=== PATIENT | male | born 2000 | race Caucasian/White ===

== ENCOUNTER 2022-06-29 14:50 | Emergency (ER) | payer MEDICAID, SELFPAY ==
[2022-06-29 15:59] VITALS: BP 126/58; PULSE 74; RESP 18; TEMP 36.8; O2SAT 100; BMI 23.0
[2022-06-29] MEDS: Ondansetron ODT 4 MG TAB.RAPDIS TRANSLINGU (16:04)
[2022-06-29 19:21] LABS: MANUAL DIFF FLAG NO
[2022-06-29 19:28] VITALS: BP 139/60; PULSE 72; RESP 16; TEMP 36.7; O2SAT 98
[2022-06-29 19:28] LABS: INTERNATIONAL NORM RATIO 1.1 (0.9-1.1); Prothrombin Time 12.5 SEC (10.0-13.1)
[2022-06-29 19:31] LABS: Basophils Percent Auto 0.3 % (0-2); Eosinophils Percent Auto 0.3 % (0-4); Hematocrit 40.6 % (42.0-52.0); Hemoglobin 14.4 g/dl (14.0-18.0); Imm Gran Abs Auto 0.02 X10*3/uL (0.00-0.03); Imm Gran Pct Auto 0.3 % (0.0-0.4); Lymphocytes Absolute Auto 1.6 X10*3/uL (1.2-4.9); Mean Corpuscular HGB Conc 35.5 g/dl (31.0-36.0); Mean Corpuscular Hemoglobin 31.2 pg (27.0-33.0); Mean Corpuscular Volume 87.9 fL (80.0-98.0); Mean Platelet Volume 9.7 fL (9.4-12.4); Monocytes Absolute Auto 0.9 X10*3/uL (0.1-1.2); Monocytes Percent Auto 11.3 % (2-11); Neutrophils Absolute Auto 5.1 x10*3/uL (2.0-8.3); Neutrophils Percent Auto 66.8 % (45-73); Partial Thromboplastin Time 28.8 SEC (26.0-36.4); Platelet Count 240 X10*3/uL (160-400); Red Blood Count 4.62 X10*6/uL (4.60-5.80); Red Cell Distribution Width 12.2 % (11.0-16.0); White Blood Count 7.6 X10*3/uL (4.8-10.8)
[2022-06-29 19:54] LABS: Alanine Aminotransferase 25 U/L (0-40); Albumin Level 4.7 g/dL (3.5-5.0); Alkaline Phosphatase 83 U/L (39-117); Anion Gap 15 (12-20); Aspartate Amino Transferase 25 U/L (5-37); Bilirubin Total 1.2 mg/dL (0.0-1.0); Blood Urea Nitrogen 18 mg/dL (9-16); Calcium 9.1 mg/dL (8.4-10.2); Carbon Dioxide 25 mmol/L (22-29); Chloride 105 mmol/L (96-108); Creatinine Clr Calc Pharmacy 121.4; Estimated Glomerular Filt Rate > 60; Glucose Random 85 mg/dL (60-115); Sodium 141 mmol/L (135-145); Total Protein 6.7 g/dL (6.5-8.0)
--- NOTE | 2022-06-29 20:08 | ED_ITS ---
History of Present Illness General Chief Complaint: Epistaxis Stated Complaint: bloody nose, dizzy Time Seen by Provider: 06/29/22 16:23 Source: patient and family (Mother) Mode of arrival: ambulatory Limitations: no limitations History of Present Illness HPI Narrative: 22-year-old male who presents emergency department for evaluation of nose bleed patient states that around 14:00 he began having a nose bleed from his left nares. He states he was unable to get the bleeding to stop despite putting pressure on the bridge of his nose. Patient states he has had 3 nose bleeds over the last month. He states that he often gets nosebleeds in the winter months as well. He believes that the nose bleeds usually occur on his left side of his nose. He denies picking his nose or putting anything in his nose. He s tates that approximately 3 or 4 weeks ago he did notice some bruising in his lower extremities which have resolved. He has not had any significant bleeding when he brushes his teeth or any bleeding rectally. He denied any systemic symptoms such as fever, chills, rhinorrhea, sore throat, cough, night sweats, weight loss or weight gain. Location: Yes left naris Onset/current episode: Yes hour(s) (14:00) Duration: Yes constant (Resolved prior to coming to emergency department) Pertinent past history: Yes history of previous nose bleed (3 times in last 3 weeks, often during the winter months) Context: Yes history of previous nose bleed Treatment prior to arrival: Yes other (Pinching the bridge of his nose.) Related Data Allergies Allergy/AdvReac Type Severity Reaction Status Date / Time No Known Allergies Allergy Verified 06/29/22 15:59 Review of Systems Review of Systems: Yes all other systems are reviewed and are negative [facility] Past Medical History [facility] Narrative: Past medical history: None. Past surgical history left femur fracture 2019 ORIF. Social history: He denies tobacco, alcohol and drug use. Social History Social History Advance Directives: No Advance Directives Information Provided: No Physical Exam Vital Signs: Vital Signs: Last Vital Signs Temp 98.1 F 06/29/22 19:28 Pulse 72 06/29/22 19:28 Resp 16 06/29/22 19:28 BP 139/60 06/29/22 19:28 Pulse Ox 98 06/29/22 19:28 O2 Del Method 06/29/22 19:28 BMI result Body Mass Index 23.0 Const: General: cooperative and no acute distress Orientation/consciousness: oriented to person and oriented to place Limitations: no limitations HEENT: Other: Patient has dry blood in his left nares, there is a very tiny crack noted over the anterior nasal septum in the area of Kiesselbach's plexus, no blood clot or active bleeding noted Head: Yes normal to inspection, Yes normocephalic and Yes atraumatic Ears: external ears normal Face and sinus: Yes normal facial exam Mouth: Normal oral and palatal mucosa present Throat: Yes posterior o ropharynx normal Eyes: General: appearance normal, both eyes and all related structures Pupils: Equal, round and reactive pupils present Neck: Neck: Yes normal visual inspection, Yes no lymphadenopathy, Yes trachea midline and Yes supple Chest: Chest palpation & inspection: normal inspection of the chest and normal palpation of entire chest wall Resp: Effort & Inspection: normal respiratory effort and able to speak in complete sentences Auscultation: clear to auscultation bilaterally Cardio: Rate: regular rate Rhythm: regular rhythm Heart sounds: S1 normal heart sound present, S2 normal heart sound present and no murmurs GI: Inspection: Yes normal to inspection Palpation (GI): Soft to palpation, nontender and no guarding Auscultation: normal bowel sounds Skin: Other: Patient has no bruising of his skin, no lesions Neuro: General: oriented to person and oriented to place Cranial nerves: Yes CN's II-XII intact bilaterally and Yes Equal, round and reactive pupils present Cognition (Neuro): normal cognition Extrem: General: Yes normal to inspection Psych: Appearance: grossly normal Speech and movement: Normal speech and movement present Affect: normal affect Course Course Course Narrative: 22-year-old male who presents emergency department for evaluation of left nares epistaxis. Patient states he has had 3 nosebleeds last 3 weeks. He states that he gets nose bleeds often in the wintertime. The patient did notice some unusual bruising 3 weeks prior but has had no bruising since then. Patient's physical examination did reveal drive blood in his left nares with a slight crack in the mucosa over anterior nasal septum in the area Kiesslebach plexus. Patient did not have any other concerning symptoms. Patient's CBC, CMP, PT/INR were normal. I did discuss epistaxis with the patient and how to controlled the bleeding. Patient was given printed and verbal instructions and discharged home MDM - Epistaxis Lab Data Result diagrams: 06/29/22 19:18 06/29/22 19:18 Labs: Lab Results 06/29/22 06/29/22 06/29/22 Range/Units 19:18 19:18 19:18 WBC 7.6 (4.8-10.8) X10*3/uL RBC 4.62 (4.60-5.80) X10*6/uL Hgb 14.4 (14.0-18.0) g/dl Hct 40.6 L (42.0-52.0) % MCV 87.9 (80.0-98.0) fL MCH 31.2 (27.0-33.0) pg MCHC 35.5 (31.0-36.0) g/dl RDW 12.2 (11.0-16.0) % Plt Count 240 (160-400) X10*3/uL MPV 9.7 (9.4-12.4) fL Immature Gran % (Auto) 0.3 (0.0-0.4) % Neut % (Auto) 66.8 (45-73) % Lymph % (Auto) 21.0 (20-40) % Hanson % (Auto) 11.3 H (2-11) % Eos % (Auto) 0.3 (0-4) % Baso % (Auto) 0.3 (0-2) % Lymph # (Auto) 1.6 (1.2-4.9) X10*3/uL Hanson # (Auto) 0.9 (0.1-1.2) X10*3/uL Eos # (Auto) 0.0 (0.0-0.4) X10*3/uL Baso # (Auto) 0.0 (0.0-0.2) X10*3/uL Abs Immat Gran (auto) 0.02 (0.00-0.03) X10*3/uL Absolute Neuts (auto) 5.1 (2.0-8.3) x10*3/uL Absolute Nucleated RBC 0.000 (0.0-0.012) X10*3/uL Nucleated RBC % (auto) 0.0 (0.0-0.2) /100WBC PT 12.5 (10.0-13.1) SEC INR 1.1 (0.9-1.1) APTT 28.8 (26.0-36.4) SEC Sodium 141 (135-145) mmol/L Potassium 4.0 (3.3-5.1) mmol/L Chloride 105 (96-108) mmol/L Carbon Dioxide 25 (22-29) mmol/L Anion Gap 15 (12-20) BUN 18 H (9-16) mg/dL Creatinine 1.01 (0.5-1.4) mg/dL Estim Creat Clear Calc 121.4 Estimated GFR > 60 Random Glucose 85 (60-115) mg/dL Calcium 9.1 (8.4-10.2) mg/dL Total Bilirubin 1.2 H (0.0-1.0) mg/dL AST 25 (5-37) U/L ALT 25 (0-40) U/L Alkaline Phosphatase 83 (39-117) U/L Total Protein 6.7 (6.5-8.0) g/dL Albumin 4.7 (3.5-5.0) g/dL Discharge Plan Discharge Clinical Impression: Epistaxis Patient Disposition: Home, Self-Care Instructions: Nosebleed (ED) Additional Instructions: Your blood work was normal which is reassuring. At this time I do not think that you have any signs or symptoms of unusual bleeding to suggest that you have any blood disorder such as leukemia. Use Vaseline on the inside of your nose once a day for the next week to try to keep your nose moist into keep your nose from drying out. This will hopefully prevent rebleeding of the blood vessels located on Kiesselbach's plexus (the network of blood vessel just inside your nose). Follow-up with your doctor in 2 days. Please return to the emergency department if your symptoms get worse or if you develop any symptoms that are concerning to you.
== END 2022-06-29 20:40 | disposition home or self-care (01) ==
PROVIDERS: Emergency Provider Emergency Medicine Emergency Medical Services
DX: R04.0 Epistaxis (principal); R42 Dizziness and giddiness; Z79.899 Other long term (current) drug therapy
CPT/HCPCS: 36415; 80053; 85025; 85610; 85730; 99283; 99284